=== PATIENT | male | born 1985 | race American Indian/Alaskan Native ===

== ENCOUNTER 2016-07-19 17:50 | Emergency (ER) | payer OTHER ==
[2016-07-19 18:37] LABS: Bilirubin,Urine NEG (Negative); Blood,Urine SM (Negative); Ketones,Urine NEG (Negative); Leukocyte Esterase,Urine NEG (Negative); Mucus,Urine 2+ /HPF; Nitrite,Urine NEG (Negative); Protein,Urine <15 mg/dL mg/dL (Negative); Urobilinogen,Urine < 2.0 mg/dL (<2.0)
--- NOTE | 2016-07-19 19:06 | Emergency Department Report ---
ED Allergic Reaction HPI - General Chief complaint: Allergic Reaction Stated complaint: ALLERGIC REACTION Time Seen by Provider: 07/19/16 18:00 Source: patient, EMS Mode of arrival: Ambulatory Limitations: No Limitations - History of Present Illness Initial Comments: 31-year-old male presents to the emergency department via EMS complaining of an allergic reaction. Patient states he was seen by his primary care physician earlier today for lower abdominal pain. He was prescribed Cipro for a urinary tract infection. Patient states she took the first dose and approximately 20 minutes later began having itching and a rash on his arms. He denies difficulty breathing or difficulty swallowing. Patient was administered IV Benadryl by EMS prior to arrival. He states his rash and itching have resolved. There are no other complaints. MD Complaint: allergic reaction -: Sudden, This afternoon Exposure: medication Symptoms: rash, itching Severity: mild Treatment Prior to Arrival: benadryl Previous Allergy History: none - Related Data Previous Rx's Medication Instructions Recorded Last Taken Type Oxybutynin [Ditropan] 5 mg PO TID PRN #20 tab 07/19/16 Unknown Rx Allergies Allergy/AdvReac Type Severity Reaction Status Date / Time ciprofloxacin [From Cipro] Allergy Rash Verified 07/19/16 18:05 ciprofloxacin HCl Allergy Rash Verified 07/19/16 18:05 [From Cipro] ED Review of Systems ROS: Stated complaint: ALLERGIC REACTION Other details as noted in HPI Comment: All other systems reviewed and negative Skin: rash, pruritus ED Past Medical Hx - Past Medical History Previous Medical History?: No - Surgical History Past Surgical History?: No - Family History Family history: no significant - Social History Smoking Status: Current Every Day Smoker Substance Use Type: Alcohol - Medications Home Medications: Home Medications Medication Instructions Recorded Confirmed Last Taken Type Oxybutynin [Ditropan] 5 mg PO TID PRN #20 tab 07/19/16 Unknown Rx ED Physical Exam - General Limitations: No Limitations General appearance: alert, in no apparent distress - Head Head exam: Present: atraumatic, normocephalic - Eye Eye exam: Present: normal appearance, PERRL, EOMI - ENT ENT exam: Present: normal exam, normal orophraynx, mucous membranes moist - Neck Neck exam: Present: normal inspection, full ROM. Absent: tenderness - Respiratory Respiratory exam: Present: normal lung sounds bilaterally. Absent: respiratory distress - Cardiovascular Cardiovascular Exam: Present: regular rate, normal rhythm, normal heart sounds - GI/Abdominal GI/Abdominal exam: Present: soft, normal bowel sounds. Absent: distended, tenderness - Extremities Exam Extremities exam: Present: normal inspection, full ROM. Absent: tenderness - Back Exam Back exam: Present: normal inspection, full ROM. Absent: tenderness - Neurological Exam Neurological exam: Present: alert, oriented X3. Absent: motor sensory deficit - Skin Skin exam: Present: warm, dry, intact ED Course Vital Signs 07/19/16 07/19/16 18:00 19:45 Temperature 97.7 F 97.8 F Pulse Rate 94 H 83 Respiratory 20 16 Rate Blood Pressure 114/71 Blood Pressure 121/78 [Right] O2 Sat by Pulse 100 100 Oximetry ED Medical Decision Making - Medical Decision Making Patient has remained asymptomatic in the emergency department. Urinalysis results reviewed and discussed with the patient. Patient will be discharged home at this time. He is instructed to discontinue the Cipro. He will be prescribed Ditropan for bladder spasms. - Differential Diagnosis medication reaction, urticaria Critical care attestation.: If time is entered above; I have spent that time in minutes in the direct care of this critically ill patient, excluding procedure time. ED Disposition Clinical Impression: Allergic reaction caused by a drug Qualifiers: Encounter type: initial encounter Qualified Code(s): T78.40XA - Allergy, unspecified, initial encounter Disposition: DISCHARGED TO HOME OR SELFCARE Is pt being admited?: No Condition: Stable Instructions: Antibiotic Medication Allergy (ED) Prescriptions: Oxybutynin [Ditropan] 5 mg PO TID PRN #20 tab PRN Reason: Pain Referrals: PRIMARY CARE, [Primary Care Provider] - 3-5 Days Time of Disposition: 20:19
[2016-07-19 19:47] VITALS: BP 121/78
== END 2016-07-19 21:06 | disposition home or self-care (01) ==
LOC: ED 17:50
DX: T78.40XA Allergy, unspecified, initial encounter (principal); F17.200 Nicotine dependence, unspecified, uncomplicated
CPT/HCPCS: 81001; 99283

== ENCOUNTER 2016-09-04 23:31 | Emergency (ER) | payer OTHER ==
[2016-09-05 06:15] VITALS: BP 129/82
[2016-09-05] MEDS ORDERED: MARCAINE 0.5% INFILTRATI ONE (07:17)
[2016-09-05] MEDS ORDERED: BOOSTRIX IM ONE (07:17)
[2016-09-05] MEDS ORDERED: MOTRIN PO ONE (07:17)
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
== END 2016-09-05 09:10 | disposition home or self-care (01) ==
LOC: ED 23:31
DX: S01.91XA Laceration without foreign body of unspecified part of head, initial encounter (principal); S62.316A Displaced fracture of base of fifth metacarpal bone, right hand, initial encounter for closed fracture; Z88.1 Allergy status to other antibiotic agents; Y04.0XXA Assault by unarmed brawl or fight, initial encounter; Y93.89 Activity, other specified; Y92.89 Other specified places as the place of occurrence of the external cause; Y99.8 Other external cause status
CPT/HCPCS: 90471; 90715; 99283

== ENCOUNTER 2020-11-21 05:43 | Emergency (ER) | payer SELFPAY ==
[2020-11-21 07:37] VITALS: BP 124/89
--- NOTE | 2020-11-21 09:56 | Emergency Department Report ---
ED ENT HPI - General Chief complaint: Sore Throat Stated complaint: IT HURTS WHEN I SWALLOW Time Seen by Provider: 11/21/20 09:25 Source: patient Mode of arrival: Ambulatory Limitations: No Limitations - History of Present Illness Initial comments: The patient was evaluated in the emergency department for symptoms described in the history of present illness. He/she was evaluated in the context of the global COVID-19 pandemic, which necessitated consideration that the patient might be at risk for infection with the virus that causes COVID-19. Insti tutional protocols and algorithms that pertain to the evaluation of patients at risk for COVID-19 are in a state of rapid change based on information released by regulatory bodies including the CDC and federal and state organizations. These policies and algorithms were followed during the patient's care in the emergency department. Please note that these policies, procedures and recommendations changed on a rapid basis. 35-year-old -[place] male presents to the emergency room complaining of sore throat and left side of neck pain x3 days. Patient also admits to intermittent headache and a couple days of sniffles. Denies any fever chills no nausea no vomiting no chest pain shortness of breath or cough patient states he is taking ibuprofen. Patient is unvaccinated and has not been tested for Covid. Patient denies any other past medical history and is allergic to Cipro does not take any meds on a daily basis. MD complaint: tooth pain - Related Data Previous Rx's Medication Instructions Recorded Last Taken Type Oxybutynin [Ditropan] 5 mg PO TID PRN #20 tab 07/19/16 Unknown Rx Ibuprofen [Motrin 600 MG tab] 600 mg PO Q8H PRN #15 tablet 09/05/16 Unknown Rx cephALEXin [Keflex] 500 mg PO Q8HR 5 Days cap 09/05/16 Unknown Rx Azithromycin [Zithromax Z-SILVIANO] 250 mg PO DAILY #6 tablet 11/04/19 Unknown Rx Famotidine [Pepcid] 20 mg PO Q12H #60 tablet 11/04/19 Unknown Rx Ibuprofen [Motrin] 600 mg PO Q8H PRN #24 tablet 11/04/19 Unknown Rx Lidocaine Viscous 2% 10 ml PO Q4H PRN #120 ml 11/04/19 Unknown Rx methylPREDNISolone [Medrol 4MG 4 mg PO DAILY #21 tab.ds.pk 11/04/19 Unknown Rx DOSEPAK (21 tabs)] Amoxicillin/K Clav Tab [Augmentin 1 tab PO Q12HR 10 Days #20 tab 11/21/20 Unknow n Rx 875 mg] Ibuprofen [Motrin 800 MG tab] 800 mg PO Q8HR PRN #30 tablet 11/21/20 Unknown Rx Allergies Allergy/AdvReac Type Severity Reaction Status Date / Time ciprofloxacin [From Cipro] Allergy Rash Verified 07/19/16 18:05 ciprofloxacin HCl Allergy Rash Verified 07/19/16 18:05 [From Cipro] ED Dental HPI - General Chief complaint: Sore Throat Stated complaint: IT HURTS WHEN I SWALLOW Time Seen by Provider: 11/21/20 09:25 Source: patient Mode of arrival: Ambulatory Limitations: No Limitations - Related Data Previous Rx's Medication Instructions Recorded Last Taken Type Oxybutynin [Ditropan] 5 mg PO TID PRN #20 tab 07/19/16 Unknown Rx Ibuprofen [Motrin 600 MG tab] 600 mg PO Q8H PRN #15 tablet 09/05/16 Unknown Rx cephALEXin [Keflex] 500 mg PO Q8HR 5 Days cap 09/05/16 Unknown Rx Azithromycin [Zithromax Z-SILVIANO] 250 mg PO DAILY #6 tablet 11/04/19 Unknown Rx Famotidine [Pepcid] 20 mg PO Q12H #60 tablet 11/04/19 Unknown Rx Ibuprofen [Motrin] 600 mg PO Q8H PRN #24 tablet 11/04/19 Unknown Rx Lidocaine Viscous 2% 10 ml PO Q4H PRN #120 ml 11/04/19 Unknown Rx methylPREDNISolone [Medrol 4MG 4 mg PO DAILY #21 tab.ds.pk 11/04/19 Unknown Rx DOSEPAK (21 tabs)] Amoxicillin/K Clav Tab [Augmentin 1 tab PO Q12HR 10 Days #20 tab 11/21/20 Unknown Rx 875 mg] Ibuprofen [Motrin 800 MG tab] 800 mg PO Q8HR PRN #30 tablet 11/21/20 Unknown Rx Allergies Allergy/AdvReac Type Severity Reaction Status Date / Time ciprofloxacin [From Cipro] Allergy Rash Verified 07/19/16 18:05 ciprofloxacin HCl Allergy Rash Verified 07/19/16 18:05 [From Cipro] ED Review of Systems ROS: Stated complaint: IT HURTS WHEN I SWALLOW Other details as noted in HPI Comment: All other systems reviewed and negative ED Past Medical Hx - Past Medical History Previous Medical History?: No Additional medical history: Denies - Surgical History Past Surgical History?: Yes Additional Surgical History: left wrist - Social History Smoking Status: Never Smoker Substance Use Type: None - Medications Home Medications: Home Medications Medication Instructions Recorded Confirmed Last Taken Type Oxybutynin [Ditropan] 5 mg PO TID PRN #20 tab 07/19/16 Unknown Rx Ibuprofen [Motrin 600 MG tab] 600 mg PO Q8H PRN #15 tablet 09/05/16 Unknown Rx cephALEXin [Keflex] 500 mg PO Q8HR 5 Days cap 09/05/16 Unknown Rx Azithromycin [Zithromax Z-SILVIANO] 250 mg PO DAILY #6 tablet 11/04/19 Unknown Rx Famotidine [Pepcid] 20 mg PO Q12H #60 tablet 11/04/19 Unknown Rx Ibuprofen [Motrin] 600 mg PO Q8H PRN #24 tablet 11/04/19 Unknown Rx Lidocaine Viscous 2% 10 ml PO Q4H PRN #120 ml 11/04/19 Unknown Rx methylPREDNISolone [Medrol 4MG 4 mg PO DAILY #21 tab.ds.pk 11/04/19 Unknown Rx DOSEPAK (21 tabs)] Amoxicillin/K Clav Tab [Augmentin 1 tab PO Q12HR 10 Days #20 tab 11/21/20 Unknown Rx 875 mg] Ibuprofen [Motrin 800 MG tab] 800 mg PO Q8HR PRN #30 tablet 11/21/20 Unknown Rx ED Physical Exam - General Limitations: No Limitations General appearance: alert, in no apparent distress - Head Head exam: Present: atraumatic, normocephalic - Eye Eye exam: Present: normal appearance - Expanded ENT Exam Expanded Throat exam: Positive: tonsillar erythema, tonsillomegaly, tonsillar exudate - Neck Neck exam: Present: tenderness, full ROM, lymphadenopathy (Right side) - Respiratory Respiratory exam: Present: normal lung sounds bilaterally. Absent: accessory muscle use - Cardiovascular Cardiovascular Exam: Present: regular rate - GI/Abdominal GI/Abdominal exam: Present: soft, normal bowel sounds - Extremities Exam Extremities exam: Present: normal inspection, full ROM - Back Exam Back exam: Present: normal inspection - Neurological Exam Neurological exam: Present: alert, oriented X3, normal gait - Psychiatric Psychiatric exam: Present: normal affect, normal mood - Skin Skin exam: Present: warm, dry, intact, normal color. Absent: rash ED Course Vital Signs 11/21/20 07:35 Temperature 97.7 F Pulse Rate 66 Respiratory 15 Rate Blood Pressure 124/89 O2 Sat by Pulse 99 Oximetry ED Medical Decision Making - Medical Decision Making 35-year-old -[place] male presents to the emergency room complaining of sore throat and left side of neck pain x3 days. Patient also admits to intermittent headache and a couple days of sniffles. Denies any fever chills no nausea no vomiting no chest pain shortness of breath or cough patient states he is taking ibuprofen. Patient is unvaccinated and has not been tested for Covid. Patient denies any other past medical history and is allergic to Cipro does not take any meds on a daily basis. Rapid strep has been obtained and sent to lab Critical care attestation.: If time is entered above; I have spent that time in minutes in the direct care of this critically ill patient, excluding procedure time. ED Disposition Clinical Impression: Strep pharyngitis Disposition: HOME / SELF CARE / HOMELESS Is pt being admited?: No Does the pt Need Aspirin: No Condition: Stable Instructions: Strep Throat, Adult, [id number] Additional Instructions: Strep test came back positive. Treat you with antibiotics and pain medicine. Follow-up with a primary care provider if symptoms persist. Prescriptions: Amoxicillin/K Clav Tab [Augmentin 875 mg] 1 tab PO Q12HR 10 Days #20 tab Ibuprofen [Motrin 800 MG tab] 800 mg PO Q8HR PRN #30 tablet PRN Reason: Pain , Severe (7-10) Referrals: SHERITA CORTEZ MD [Primary Care Provider] - 3-5 Days KAMAR HAMPTON MD [Staff Physician] - 3-5 Days Forms: Work/School Release Form(ED) Time of Disposition: 10:07
== END 2020-11-21 10:19 | disposition home or self-care (01) ==
LOC: ED 05:43
DX: J02.0 Streptococcal pharyngitis (principal); B95.0 Streptococcus, group A, as the cause of diseases classified elsewhere; Z98.890 Other specified postprocedural states; Z88.8 Allergy status to other drugs, medicaments and biological substances; Z79.899 Other long term (current) drug therapy
CPT/HCPCS: 87430; 99283